=== PATIENT | male | born 1965 | race Caucasian/White ===

== ENCOUNTER 2017-01-12 23:20 | Emergency (ER) | payer OTHER ==
[2017-01-12 23:56] LABS: BASO % 1.1 % (0.2-1.2); EOS # 0.1 10_X3_uL (0.0-0.5); EOS % 2.4 % (0.8-7.0); GRAN # 1.6 10_X3_uL (1.8-5.4); GRAN % 43.3 % (34.0-67.9); HEMATOCRIT 41.1 % (40-51); HEMOGLOBIN 14.1 g/dL (13.7-17.5); LYMPH # 1.7 10_X3_uL (1.3-3.6); LYMPH % 44.6 % (21.8-53.1); MEAN CORPUSCULAR HEMOGLOBIN 29.6 pg (27.0-33.0); MEAN CORPUSCULAR HGB CONC 34.3 g/dL (32.0-36.0); MEAN CORPUSCULAR VOLUME 86.2 fL (79-92); MEAN PLATELET VOLUME 9.2 fl (7.5-11.5); MONO # 0.3 10_X3_uL (0.3-0.8); MONO % 8.6 % (5.3-12.2); PLATELET COUNT 203 x10_3/uL (163-337); RED BLOOD COUNT 4.77 x10_6/uL (4.6-6.1); RED CELL DISTRIBUTION WIDTH 14.9 % (11.6-14.4); WHITE BLOOD COUNT 3.7 x10_3/uL (4.2-9.1)
[2017-01-13 00:09] LABS: BLOOD UREA NITROGEN 13 mg/dL (7-18); CALCIUM 9.8 mg/dL (8.7-10.7); CARBON DIOXIDE 17 mmol/L (21-32); CREATININE 0.8 mg/dL (0.6-1.3); GLUCOSE,RANDOM 205 mg/dL (70-99); POTASSIUM 3.7 mmol/L (3.5-5.1); SODIUM 142 mmol/L (136-145)
== END 2017-01-13 00:45 | disposition home or self-care (01) ==
LOC: ER 23:20
PROVIDERS: General Practice
DX: R00.0 Tachycardia, unspecified (principal); I10 Essential (primary) hypertension; E03.9 Hypothyroidism, unspecified; E11.9 Type 2 diabetes mellitus without complications; K21.9 Gastro-esophageal reflux disease without esophagitis; J44.9 Chronic obstructive pulmonary disease, unspecified; G89.4 Chronic pain syndrome; Z79.899 Other long term (current) drug therapy; Z79.82 Long term (current) use of aspirin; Z79.84 Long term (current) use of oral hypoglycemic drugs
CPT/HCPCS: 36415; 80048; 84443; 85025; 93005; 96374; 96375; 99070; 99283-25